=== PATIENT | male | born 1975 | race Caucasian/White ===

== ENCOUNTER 2021-01-14 12:05 | Emergency (ER) | payer MEDICAID ==
[~2021-01-14] VITALS: Ht 175.3 cm; Wt 95.5 kg
[~2021-01-14 12:05] MED LIST: NO HOME MEDS
[2021-01-14] MEDS ORDERED: TETanus/Pertussis (Acell)/Diphther VAC/PF (Tdap-Adult) 0.5ml syringe IMVAC ONE (12:35)
[2021-01-14] MEDS ORDERED: ketorolac tromethamine 15mg/ml inj. IV ONE (12:35)
[2021-01-14] MEDS ORDERED: normal saline 1000ML IV soln IVB ONE (12:35)
[2021-01-14] MEDS ORDERED: ceFAZolin/D5W- 1GM premix 50 ML IV ONE (12:35)
[2021-01-14 13:00] LABS: BASOPHILS % (AUTO) 0.7 % (0-1); EOSINOPHILS # (AUTO) 0.1 X10'3 (0-0.9); HEMATOCRIT 45.5 % (42.0-52.0); HEMOGLOBIN 15.5 g/dl (14.0-17.9); LYMPHOCYTES # (AUTO) 1.4 X10'3 (1.1-4.8); MEAN CORPUSCULAR VOLUME 91.2 FL (78-98); MEAN PLATELET VOLUME 8.3 FL (7.4-10.4); MONOCYTES # (AUTO) 0.9 X10'3 (0-0.9); NEUTROPHILS # (AUTO) 4.8 X10'3 (1.8-7.7); NEUTROPHILS % (AUTO) 66.3 % (42-75); PLATELET COUNT 251 X10'3 (140-440); RED BLOOD COUNT 4.99 X10'6 (4.70-6.10); RED CELL DISTRIBUTION WIDTH 12.9 % (11.5-14.5); WHITE BLOOD COUNT 7.3 X10'3 (4.5-11.0)
[2021-01-14 13:19] LABS: ALANINE AMINOTRANSFERASE 65 U/L (12-78); ALBUMIN 3.6 G/DL (3.4-5.0); ALKALINE PHOSPHATASE 83 IU/L (46-116); ASPARTATE AMINO TRANSFERASE 34 U/L (10-37); BILIRUBIN,TOTAL 0.3 MG/DL (0.1-1.0); BLOOD UREA NITROGEN 12 MG/DL (7-18); BUN/CREATININE RATIO 14.1 (5.4-32.0); CALCIUM 9.1 MG/DL (8.5-10.1); CHLORIDE 105 MMOL/L (99-107); CREATININE 0.85 MG/DL (0.60-1.10); GLUCOSE 114 MG/DL (70-104); TOTAL CARBON DIOXIDE 24.4 MMOL/L (24-32); TOTAL PROTEIN 7.2 G/DL (6.4-8.2); eGFR > 90 ML/MIN
[2021-01-14] MEDS ORDERED: CEPH-585 PO (13:20)
[2021-01-14 13:26] LABS: ANION GAP 8 (8-16); POTASSIUM 4.2 MMOL/L (3.5-5.1); SODIUM 137 MMOL/L (135-145)
[2021-01-14 14:11] VITALS: BP 145/102
== END 2021-01-14 14:12 | disposition home or self-care (01) ==
LOC: ER 12:06
DX: S62.395A Other fracture of fourth metacarpal bone, left hand, initial encounter for closed fracture (principal); Z20.3 Contact with and (suspected) exposure to rabies; Z98.890 Other specified postprocedural states; Z79.2 Long term (current) use of antibiotics; W29.4XXA Contact with nail gun, initial encounter; Y93.89 Activity, other specified; Y92.89 Other specified places as the place of occurrence of the external cause; Y99.8 Other external cause status
CPT/HCPCS: 29125; 36415; 73130; 80053; 83605; 85025; 90471; 90715; 96365; 96375; 99284; J0690; J1885; J7030

== ENCOUNTER 2021-05-02 09:13 | Emergency (ER) | payer OTHER ==
[~2021-05-02] VITALS: Ht 175.3 cm; Wt 90.9 kg
[~2021-05-02 09:13] MED LIST changes: +CEPH-585 PO
[2021-05-02 09:16] VITALS: BP 142/92
--- NOTE | 2021-05-02 09:30 | NUR ---
AT BS TO ASSIST LEROY WITH RECTAL
[2021-05-02] MEDS ORDERED: HYDR30SU6 RC (09:35)
== END 2021-05-02 09:43 | disposition home or self-care (01) ==
LOC: ER 09:13
DX: K62.5 Hemorrhage of anus and rectum (principal); R19.7 Diarrhea, unspecified; Z98.890 Other specified postprocedural states; Z79.899 Other long term (current) drug therapy
CPT/HCPCS: 99283

== ENCOUNTER 2025-05-19 11:24 | Emergency (ER) | payer MEDICAID, OTHER ==
[~2025-05-19] VITALS: Ht 175.3 cm; Wt 94.8 kg
[~2025-05-19 11:24] MED LIST changes: -CEPH-585 PO; +HYDR30SU6 RC
[2025-05-19 12:52] LABS: MEAN PLATELET VOLUME 8.8 FL (7.4-10.4); RED CELL DISTRIBUTION WIDTH 15.5 % (11.5-14.5)
[2025-05-19 12:59] LABS: UA COLLECTION TYPE CLN CATCH MIDSTREAM
[2025-05-19 13:01] LABS: CREATININE 1.09 MG/DL (0.60-1.10); TOTAL CARBON DIOXIDE 28.6 MMOL/L (24-32); eCRCL 84 ML/MIN; eGFR 73 ML/MIN
[2025-05-19 13:03] LABS: SQUAMOUS EPITHELIAL CELL,UR MANY /LPF (FEW)
--- NOTE | 2025-05-19 13:13 | Physician Documentation ---
History of Present Illness Chief Complaint: Vomiting Stated Complaint: UNABLE TO EAT VOMITING INTAKE Time Seen by MD: 12:08 Primary Medical Doctor: cris francisco in [facility] Mode of Arrival: POV HPI This is a as 49-year-old male presenting for three weeks of continuous nausea and vomiting as well as right upper quadrant intermittent pain. Patient reports he will get sharp pains in his right upper abdomen that will come and go. Additionally he has been extremely nauseous and has been unable to keep any food or fluids down. He reports that his urine has become very dark as well. Gradually he has grown weaker as he has been unable to keep anything down. Denies any fever, chills or any other associated symptoms Medication Reconciliation Allergies: Coded Allergies: No Known Allergies (Unverified , 10/30/16) Scheduled Hydrocortisone Acetate (Proctocort), 1 SUPP RC Q12H Miscellaneous Medications Home Med List (No Home Medications), (Reported) Past Medical History Past Medical History: No Pertinent History Past Surgical History: abdominal surgery Lives In: Home Occupation: employed Physical Exam Vital Signs: Temperature: 99.0, Source: Temporal, Heart Rate: 75, Respiratory Rate: 14, BP: 114/95, Pulse Oximetry: 98, Weight: 94.800 Oxygen Flow Rate: 0 Physical Exam I have reviewed the triage vitals. CONST: Well developed and well nourished. In no acute distress HENT: Head Atraumatic EYES: Pupils are equal, round and reactive to light. Scleral icterus present NECK: Normal range of motion. Supple. CARDIO: Normal rate and regular rhythm. No murmurs, rubs, or gallops. S1, S2. PULM/CHEST: No respiratory distress. Lungs clear to auscultation. No wheeze ABD: Soft and nontender. Nondistended. Bowel sounds normal. No guarding. : Exam deferred MSK: No edema. No deformity. NEURO: Alert and oriented to person, place and time. Moving all extremities SKIN: Warm and dry. Jaundiced PSYCH: Normal mood and affect. Good eye contact. Progress Results/Orders Results/Orders Orders - AIRAM CHRISTOPHER MD Ct Abdomen Pelvis (05/19/25 13:07) Ultrasound Of Abdomen (05/19/25 13:07) Pt Inr (05/19/25 13:08) PTT (05/19/25 13:08) Culture Blood (05/19/25 13:09) Lacticsepsis (05/19/25 13:09) Completed Orders - AIRAM CHRISTOPHER MD Cbc/Diff (05/19/25 12:23) BMP (05/19/25 12:23) Lipase (05/19/25 12:23) CMP (05/19/25 12:23) Ua W/Microscopic, Cult If Ind (05/19/25 12:45) Vital Signs 05/19/25 05/19/25 05/19/25 11:37 12:19 12:24 Temp 99.0 Pulse 93 75 Resp 18 14 B/P (MAP) 134/98 114/95 (101) Pulse Ox 99 98 O2 Flow Rate 0 0 Laboratory Tests Test 05/19/25 12:34 05/19/25 12:45 White Blood Count 6.9 Red Blood Count 5.08 Hemoglobin 15.5 Hematocrit 44.4 Mean Corpuscular Volume 87.5 Mean Corpuscular Hemoglobin 30.5 Mean Corpuscular Hemoglobin Concent 34.9 Red Cell Distribution Width 15.5 H Platelet Count 327 Mean Platelet Volume 8.8 Neutrophils (%) (Auto) 60.6 Lymphocytes (%) (Auto) 23.4 Monocytes (%) (Auto) 12.6 H Eosinophils (%) (Auto) 2.2 Basophils (%) (Auto) 1.2 H Neutrophils # (Auto) 4.2 Lymphocytes # (Auto) 1.6 Monocytes # (Auto) 0.9 Eosinophils # (Auto) 0.2 Basophils # (Auto) 0.1 CBC Comment Sodium Level 137 Potassium Level 3.4 L Chloride Level 102 Carbon Dioxide Level 28.6 Anion Gap 6 L Blood Urea Nitrogen 16 Creatinine 1.09 Estimated GFR/1.73 m2 73 BUN/Creatinine Ratio 14.7 Glucose Level 109 H Calcium Level 9.4 Total Bilirubin 16.5 H Aspartate Amino Transf (AST/SGOT) 259 H Alanine Aminotransferase (ALT/SGPT) 695 H Alkaline Phosphatase 536 H Total Protein 7.3 Albumin 3.4 Globulin 3.9 Albumin/Globulin Ratio 0.9 L Lipase 39 Chemistry Comments Urine Specimen Description Cln catch midstream Urine Color Rosi Urine Clarity Slightly cloudy Urine pH Urine Specific [place] Urine Protein Urine Glucose (UA) Urine Ketones Urine Occult Blood Urine Nitrite Urine Bilirubin Urine Urobilinogen Urine Leukocyte Esterase Urine RBC None seen Urine WBC 0-4 Urine Squamous Epithelial Cells Many Urine Bacteria None seen Urine Culture Indicated Not ind Volume Urine Centrifuged 10 ml Urine Comment See note EKG/XRAY/CT/US/VASC/MRI EKG : Additional Comment EKG as interpreted by me indicating normal sinus rhythm with a rate of 69 beats per minute, no ST changes, normal axis CT : Impression CT abdomen/pelvis with contrast: Findings: Lung Bases: No acute or significant lung base finding. Normal heart size. No pleural or pericardial effusion. Liver: Focal fatty infiltration along the falciform ligament. There is prominent intrahepatic biliary ductal dilatation throughout the liver. Gallbladder and Biliary Tree: Prominent intrahepatic and extrahepatic biliary ductal dilatation. There is particularly focal prominence in the cystic duct. The common bile duct measures 1.0 cm, the cystic duct measures 2.4 cm, and of the common hepatic duct measures 1.7 cm. There is an abrupt cutoff at the distal common bile duct although no radiopaque calculi and no obvious obstructing mass lesions. The gallbladder is mildly distended. Spleen: Unremarkable Pancreas: The pancreas is normal in appearance without focal lesions or abnormal enhancement. Pancreatic duct is within normal limits. Adrenal Glands: Unremarkable Kidneys: Few subcentimeter renal hypodensities which are too small to characterize. Right inferior renal pole scarring. No hydronephrosis. Bladder: Unremarkable Bowel: Small hiatal hernia The stomach is has mild wall thickening which is likely due to poor distention. Small bowel and colon are normal in caliber and distribution. Sigmoid colon diverticulosis without evidence of pericolonic fat stranding. There is mild wall thickening in the sigmoid colon. Normal appendix is visualized in the right lower quadrant without findings of appendicitis. Ascites: Absent Lymphadenopathy: No mesenteric, retroperitoneal or periportal lymphadenopathy. Abdominal Wall and Mesentery: Unremarkable. Vasculature: The visualized abdominal aorta is normal in size and caliber. Ab dominal and pelvic vessels demonstrate normal enhancement. Pelvic Organs: Unremarkable Musculoskeletal: No aggressive focal bony lesions, acute fractures or dislocation. IMPRESSION: Prominent intrahepatic and extrahepatic biliary ductal dilatation. No appreciable obstructing mass lesion or radiopaque calculus. Consider correlation with MRCP. Sigmoid diverticulosis without evidence of acute diverticulitis. There is wall thickening in the sigmoid colon which is nonspecific and could be due to poor di stention; however, chronic diverticulitis or neoplasm can not be entirely excluded. Consider colon cancer screening. Appendix is normal. No bowel obstruction. Ultrasound : Ultrasound of: abdomen Impression INDICATION: elevated LFTs TECHNIQUE: Multiple real-time sonographic images were obtained of the right upper quadrant. COMPARISON: None FINDINGS: The liver demonstrates increased echotexture without focal mass lesions. The liver measures 15.9 cm. There is mild intrahepatic or extrahepatic ductal dilatation. The common duct measures 1.2 cm. Gallbladder polyps are present measuring up to 0.7 cm. Cholelithiasis. The gallbladder wall measures 0.3 cm and is within normal limits. The right kidney measures 12.2 cm. The right kidney is normal in contour, size, and shape. The echogenicity is normal. There is no hydronephrosis. The pancreas is not well visualized due to overlying bowel gas. IMPRESSION: Cholelithiasis. Mild intra and extrahepatic biliary duct dilation. Gallbladder polyps are present measuring up to 0.7 cm. Medical Decision Making Additional Comments 49-year-old male presenting with retic per quadrant abdominal pain as well as nausea and vomiting. His lab workup does indicate significantly elevated LFTs. Ultrasound of the gallbladder indicates cholelithiasis as well as several gallbladder polyps. May CT of the abdomen and pelvis showed biliary and hepatic intraductal dilatation. The patient was given IV normal saline. Additionally he was started on IV Zosyn. Patient has severely elevated bilirubin of 16.5 unlikely obstruction. The patient will likely need an ERCP. I did discuss this case with Dr. Domingo, our general surgeon, and he recommended transfer to a facility that has GI available. Addendum I received sign-out on this patient at shift change. Briefly, he has a common bile duct stone with obstruction, needs transfer for GI ERCP. 9:30 p.m.: Consult: I spoke to Dr. Martin GI, at [facility]. He accepts the patient for transfer, and he will go to the hospitalist service. Phone call: I spoke to the hospitalist at [facility], who also agrees for transfer for admission. Multiple phone calls were made trying to arrange transport. Unfortunately no EMS agencies or flight crews are available for transport tonight. Transport is scheduled for 9:30 a.m. in the morning. The patient reported ongoing back pain. He was initially given Toradol, later g iven morphine to help him relax and sleep. The patient was signed out at shift change to the oncoming ER provider, pending transfer for admission. Vasquez Johnson MD Patient transferred during my shift. He was transferred via air to [place]. -Airam Christopher MD Departure Disposition: 02 SHORT TERM HOSPITAL Admission Level of Care: Med/Surg with Tele Impression: Primary Impression: Acute cholecystitis Additional Impression: Cholelithiasis Condition: Guarded Referrals: NO PRIMARY CARE PROVIDER (PCP) Signature Scribe Signature: 1 Attestation: 1 AIRAM CHRISTOPHER MD May 19, 2025 13:13 VASQUEZ JOHNSON MD May 19, 2025 21:38
[2025-05-19] MEDS ORDERED: iohexol 300mg/ml 100ml inj. ONE (13:25)
[2025-05-19] MEDS: normal saline 1000ml 1,000 ML IV ONE (14:08)
[2025-05-19] MEDS: ondansetron/PF 4mg/2ml inj IV ONE (14:08)
[2025-05-19 14:12] LABS: APTT 25 SECONDS (22-32); INR 1.0 INR
--- NOTE | 2025-05-19 14:35 | ELECTROCARDIOGRAPH REPORT ---
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 Santos Main Measurements Intervals Lavina Rate: 69 P: 41 IN: 156 QRS: 55 QRSD: 94 T: 16 QT: 394 QTc: 422 Interpretive Statements Sinus rhythm ST elev, probable normal early repol pattern Electronically Signed On 05-30-2025 23:31:[address] Santos Main Please click the below link to view image of tracing.
--- NOTE | 2025-05-19 15:24 | RADIOLOGY REPORT ---
INDICATION: elevated LFTs TECHNIQUE: Multiple real-time sonographic images were obtained of the right upper quadrant. COMPARISON: None FINDINGS: The liver demonstrates increased echotexture without focal mass lesions. The liver measure s 15.9 cm. There is mild intrahepatic or extrahepatic ductal dilatation. The common duct measures 1.2 cm. Gallbladder polyps are present measuring up to 0.7 cm. Cholelithiasis. The gallbladder wall measures 0.3 cm and is within normal limits. The right kidney measures 12.2 cm. The right kidney is normal in contour, size, and shape. The echoge nicity is normal. There is no hydronephrosis. The pancreas is not well visualized due to overlying bowel gas. IMPRESSION: Cholelithiasis. Mild intra and extrahepatic biliary duct dilation. Gallbladder polyps are present measuring up to 0.7 cm. FOLLOW UP RECOMMENDATIONS: Low-risk polyps (pedunculated with a thick or wide stalk, or sessile): < 6 mm: no follow-up 7-9 mm follow-up ultrasound at 12 months 10-14 mm: follow-up ultrasound at 6, 12, 24, and 36 months vs surgical consult > 15 mm: surgical consult cT Mcadams, Shashank C, John J et al. Management of Incidentally Detected Gallbladder Polyps: Society of Radiologists in Ultrasound Consensus Conference Recommendations. Radiology. 2021;:[id number].
--- NOTE | 2025-05-19 15:25 | RADIOLOGY REPORT ---
Exam: CT CT ABDOMEN PELVIS W/ IV CONTRAST History: elevated LFTs COMPARISON: Right upper quadrant ultrasound on same day Technique: Multidetector spiral CT of the abdomen and pelvis was performed from lung bases to pubic s ymphysis. Intravenous contrast was administered during this examination. Portal venous imaging was obtained. Axial, coronal and sagittal multiplanar reformats were performed by the technologist on a separate workstation. Radiation Dose : 1. Abdomen/Pelvis: CTDIvol 30 mGy, DLP 1591 mGy*cm. Findings: Lung Bases: No acute or significant lung base finding. Normal heart size. No pleural or pericardial effusion. Liver: Focal fatty infiltration along the falciform ligament. There is prominent intrahepatic biliary ductal dilatation throughout the liver. Gallbladder and Biliary Tree: Prominent intrahepatic and extrahepatic biliary ductal dilatation. Ther e is particularly focal prominence in the cystic duct. The common bile duct measures 1.0 cm, the cyst ic duct measures 2.4 cm, and of the common hepatic duct measures 1.7 cm. There is an abrupt cutoff at the distal common bile duct although no radiopaque calculi and no obvious obstructing mass lesions. The gallbladder is mildly distended. Spleen: Unremarkable Pancreas: The pancreas is normal in appearance without focal lesions or abnormal enhancement. Pancrea tic duct is within normal limits. Adrenal Glands: Unremarkable Kidneys: Few subcentimeter renal hypodensities which are too small to characterize. Right inferior renal pole scarring. No hydronephrosis. Bladder: Unremarkable Bowel: Small hiatal hernia The stomach is has mild wall thickening which is likely due to poor disten tion. Small bowel and colon are normal in caliber and distribution. Sigmoid colon diverticulosis with out evidence of pericolonic fat stranding. There is mild wall thickening in the sigmoid colon. Normal appendix is visualized in the right lower quadrant without findings of appendicitis. Ascites: Absent Lymphadenopathy: No mesenteric, retroperitoneal or periportal lymphadenopathy. Abdominal Wall and Mesentery: Unremarkable. Vasculature: The visualized abdominal aorta is normal in size and caliber. Abdominal and pelvic vess els demonstrate normal enhancement. Pelvic Organs: Unremarkable Musculoskeletal: No aggressive focal bony lesions, acute fractures or dislocation. IMPRESSION: Prominent intrahepatic and extrahepatic biliary ductal dilatation. No appreciable obstructing mass le ciara or radiopaque calculus. Consider correlation with MRCP. Sigmoid diverticulosis without evidence of acute diverticulitis. There is wall thickening in the sigm oid colon which is nonspecific and could be due to poor distention; however, chronic diverticulitis o r neoplasm can not be entirely excluded. Consider colon cancer screening. Appendix is normal. No bowel obstruction. Radiation optimization: All CT scans at this facility use at least one of these dose optimization onofre hniques: automated exposure control mA and/or kV adjustment per patient size (includes targeted exam s where dose is matched to clinical indication) or iterative reconstruction.
[2025-05-19] MEDS: piperacillin/tazo 3.375gm/50ml 50 ML IV SCH (17:40)
[2025-05-19] MEDS: normal saline 1000ml 1,000 ML IV SCH (20:43)
[2025-05-19] MEDS: ketorolac trometh 15mg/ml vial 15 MG/ML ML IV ONE (22:36)
[2025-05-20] MEDS: morphine 4 MG/ML inj SYRINge IV ONE (02:44)
[2025-05-20] MEDS: ondansetron/PF 4mg/2ml inj IV ONE (02:44)
[2025-05-20 06:16] VITALS: BP 148/87; O2SAT 98
[2025-05-20 07:19] VITALS: RESP 16
[2025-05-20 08:50] VITALS: TEMP 99
== END 2025-05-20 09:05 | disposition short-term general hospital (02) ==
LOC: ER 11:25
DX: K80.00 Calculus of gallbladder with acute cholecystitis without obstruction (principal); Z79.899 Other long term (current) drug therapy
CPT/HCPCS: 36415; 74177; 76700; 80053; 81001; 83605; 83690; 84484; 85025; 85610; 85730; 87040; 93005; 96361; 96365; 96366; 96375; 96376; 99285; J1885; J2270; J2405; J2543; J7030; Q9967